=== PATIENT | female | born 1940 | race Caucasian/White ===

== ENCOUNTER 2016-11-22 14:11 | Emergency (ER) | payer MEDICARE, MEDICAID ==
[~2016-11-22] VITALS: Ht 152.4 cm; Wt 100.0 kg
[~2016-11-22 14:11] MED LIST: ASPI-973 PO; CARV6.25 PO; CLOP75TA3 PO; FURO-129 PO; LIP40 PO; LISI-567 PO; NITR0.4T6 SL; SPIR25TA PO; oxygen NASAL
[2016-11-22 14:18] VITALS: BP 142/69; PULSE 67; RESP 16; O2SAT 97
[2016-11-22] MEDS ORDERED: LOSA25TA21 PO (16:30)
[2016-11-22 17:28] LABS: BASOPHILS % (AUTO) 0.4 % (0-3); EOSINOPHILS % (AUTO) 4.3 % (0-5); MONOCYTES % (AUTO) 11.3 % (4-12); Mean Corpuscular Hemoglobin 28.3 pg (27.0-35.0); Mean Corpuscular Volume 89.3 fL (81-100); NEUTROPHILS % (AUTO) 59.3 % (40-74); Platelet Count 238 bil/L (150-400)
--- NOTE | 2016-11-22 17:45 | ED.REPORT ---
HPI-Abd Pain F 40 and Over Date of Service Nov 22, 2016 ED Provider: Deo Lazaro MD Pt is a 76 y/o female w/ a hx of CAD, HTN, hyperlipidemia, presenting to the ED c/o constant lower abdominal pain with radiation to the bilateral inguinal regions onset 2 days ago. She also reports bilateral lower extremity weakness which she states is caused by the pain. She denies diarrhea, constipation, bowel incontinence, dysuria, nausea, vomiting, fever, chills. Pt denies any recent trauma. There is no history of similar symptoms. She has no history of bleeding ulcers. The patient was seen at a walk in clinic and told to come here because "she needed imaging". 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 PCP: [facility] Notes Stated Complaint: WEAKNESS Chief Complaint: Extremity Trauma Nursing Notes Reviewed: Yes Allergies: Coded Allergies: Penicillins (Verified Allergy, Unknown, Rash, 11/22/16) Scheduled ([oxygen]) 2 L NASAL AT NIGHT Aspirin (Aspirin) 81 Mg Tablet 81 MG PO DAILY Atorvastatin (Lipitor) 40 Mg Tablet 40 MG PO HS Carvedilol (Coreg) 6.25 Mg Tablet 6.25 MG PO BID Clopidogrel Bisulfate (Plavix) 75 Mg Tablet 75 MG PO DAILY Furosemide (Lasix) 20 Mg Tablet 20 MG PO DAILY Lisinopril (Lisinopril) 20 Mg Tablet 20 MG PO DAILY Losartan Potassium (Losartan Potassium) 25 Mg Tablet 25 MG PO DAILY Spironolactone (Aldactone) 25 Mg Tablet 12.5 MG PO DAILY Scheduled PRN Nitroglycerin SL (Nitroglycerin SL) 0.4 Mg Tab.subl 0.4 MG SL DIRECTED PRN PRN For Chest Pain General Time Seen by MD: 17:43 Chief Complaint 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 pain 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, 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 Arrived By: Walk-in Sudden in Onset?: No Onset Occurred: 2 days ago Symptom Duration: Since onset Progression since Onset: Unchanged Location: : Abdomen lower Quality: Painful Severity: Current: Moderate Severity: Maximum: Moderate Similar Sx Previous: No Past Medical History Past Medical History Hypertension Hyperlipidemia CAD STEMI Past Surgical History Denies Family History noncontributory Smoking History Never Smoker Social History Alcohol Use: Denies alcohol use Drug Use: Denies drug use Other Social History: Good social support, , Local resident Ambulatory Status Independent Review of Systems Constitutional: Denies: Chills, Fever Respiratory: Denies: Non-productive cough, Shortness of breath Cardiovascular: Denies: Chest pain, Dyspnea on exertion GI: Reports: Abdominal pain, Denies: Constipation, Diarrhea, Nausea, Vomiting Female: Denies: Dysuria, Urinary frequency Complete sys rev & neg: except as marked. Neurologic: Reports: Weakness, Denies: Bladder dysfunction, Bowel dysfunction, Focal weakness, Numbness Physical Exam Vital Signs Vital Signs (First) Date Time Temp Pulse Resp B/P Pulse Ox O2 Delivery O2 Flow Rate FiO2 11/22/16 14:18 36.4 67 16 142/69 97 Room Air Initial VS: Reviewed, Vital signs normal Head / Eyes: Atraumatic, Normocephalic, PERRL ENT: Mucous membranes moist, Conjunctiva normal, No scleral icterus Neck: Supple, Full range of motion Skin: Warm, Dry, No cyanosis Neurologic: Alert, Oriented, Nonfocal Psychiatric: Mood/affect normal, Behavior normal, Normal thought content General/Constitutional: Awake, Alert, No acute distress, Well appearing, Cooperative, Not toxic appearing Respiratory / Chest: Atraumatic, Breath sounds NL, Breath sounds = bilat, No respiratory distress, No rales, No rhonchi, No wheezing, No retractions, No stridor, No chest tenderness, No chest wall deformity, No crepitus Cardiovascular: Heart rate NL, Regular rhythm, Heart sounds NL, No gallop, No murmurs, No rubs, Cap refill not delayed, Peripheral circulation NL Abdomen: Atraumatic, Soft, Non-tender, No guarding, No rebound, No distention, No palpable mass Back: Full range of motion, Painless range of motion Lower Extremity / Pelvis / MS: Atraumatic, Full range of motion, No deformity, Neurologic intact, Vascular intact, No compartment syndrome, Pelvis stable Interpretation & Diagnostics Lab Results Interpretation Result Diagram: 11/22/16 1655 11/22/16 1655 Test 11/22/16 16:55 11/22/16 17:43 White Blood Count 8.2th/mm3 (3.8-10.1) Red Blood Count 4.28mil/mm3 (3.90-5.20) Hemoglobin 12.1g/dL (12.0-15.6) Hematocrit 38.2% (35.0-46.0) Mean Corpuscular Volume 89.3fL (81-100) Mean Corpuscular Hemoglobin 28.3pg (27.0-35.0) Mean Corpuscular Hemoglobin Concent 31.7% (32.0-37.0) Red Cell Distribution Width 15.5% (12.3-15.4) Platelet Count 238bil/L (150-400) Neutrophils (%) (Auto) 59.3% (40-74) Lymphocytes (%) (Auto) 24.5% (14-46) Monocytes (%) (Auto) 11.3% (4-12) Eosinophils (%) (Auto) 4.3% (0-5) Basophils (%) (Auto) 0.4% (0-3) Sodium Level 142mEq/L (134-144) Potassium Level 3.9mEq/L (3.5-5.2) Chloride Level 103mEq/L (97-108) Carbon Dioxide Level 26mmol/L (18-29) Blood Urea Nitrogen 16mg/dL (8-27) Creatinine 0.59mg/dL (0.57-1.00) Estimat Glomerular Filtration Rate 141mL/min (>59) Glucose Level 109mg/dL (60-99) Calcium Level 9.1mg/dL (8.5-10.1) Total Bilirubin 0.2mg/dL (0.0-1.2) Aspartate Amino Transf (AST/SGOT) 12U/L (0-50) Alanine Aminotransferase (ALT/SGPT) 11U/L (0-32) Alkaline Phosphatase 77U/L (25-165) Total Protein 7.0g/dL (6.4-8.4) Albumin 3.8g/dL (3.4-5.0) Hold Dennis Top Tube Received (Received) Urine Color Straw (YELLOW) Urine Appearance Clear (CLEAR,HAZY) Urine pH 5.5 (5.0-8.0) Urine Specific [place] 1.010 (1.003-1.035) Urine Protein Negativemg/dL (NEG,TRACE) Urine Glucose (UA) Negativemg/dL (NEGATIVE) Urine Ketones Negativemg/dL (NEGATIVE) Urine Occult Blood Negative (NEGATIVE) Urine Nitrite Negative (NEGATIVE) Urine Bilirubin Negative (NEGATIVE) Urine Urobilinogen Normalmg/dL (NORMAL) Urine Leukocyte Esterase Trace (NEGATIVE) Urine RBC 0-2/hpf (0-2) Urine WBC 0-5/hpf (0-5) Urine Epithelial Cells Few/hpf (NONE-MOD) Urine Crystals None seen (NONE SEEN) Urine Bacteria None/hpf (NONE-FEW) Urine Hyaline Casts None/lpf (NONE) Urine Granular Casts None seen (NONE SEEN) Urine Waxy Casts None seen (NONE SEEN) Urine Red Blood Cell Casts None seen (NONE SEEN) Urine White Blood Cell Casts None seen (NONE SEEN) Urine Mucus None seen (None Seen) Urine Trichomonas None seen (NONE SEEN) Urine Yeast None (NONE SEEN) Urine Culture Reflexed Indicated X-Ray Interpretation Xray Interpretation: IMPRESSION: No fracture or dislocation. Dictated by: Kirsten Evans M.D. on 11/22/2016 at 18:52 Approved by: Kirsten Eavns M.D. on 11/22/2016 at 18:53 Study Performed: 2 view X-Ray Ordered: Pelvis Interpretation / Wet Read by: Interpret - Radiologist Re-Eval/Medical Decision Re-Evaluation/Progress : Time of Eval: 19:05 Re-Evaluation/Progress Note: Pt rechecked. Discussed negative imaging results. Pt ambulated, pain is improved post ibuprofen. Has a walker at home. Informed pt of plan for treatment. Pt understands and agrees with plan for treatment. F/U instructions and RTER warnings given. All questions addressed. Counseled Regarding: Diagnosis, Lab results, Need for follow-up, When/why to return to ED Discharge & Departure Primary Impression: Bilateral hip pain Disposition: Home Discharge Condition All VS Reviewed: Yes Condition: Stable Additional Instructions: Emergency Department evaluation included a review, examination review past records labs and pelvis x-ray. No acute medical problems identified tonight. Hip and pelvic pain is most likely musculoskeletal. Ibuprofen 400 mg 3 times a day with food will help. Take this for 1 week and then only as needed for pain. Acetaminophen as needed for pain not controlled by ibuprofen. Follow up with primary care next week. Return to emergency department for bowel pain fever vomiting black stool or vomiting blood Referrals: Tres Thacker MD (PCP) Scribe Attestation Portions of this note were transcribed by Chidi Castellanos and Joseph Cook. I, Dr. Lazaro personally performed the history, physical exam and medical decision- making; I reviewed and confirmed the accuracy of the information in the transcribed note. Signed by: Chidi Castellanos and Joseph Cook, Calvin, 11/22/16 and 1905 copies to: Tres Thacker MD, Donald L MD Nov 22, 2016 17:45 JOSEPH COOK Nov 22, 2016 17:55 Chidi Castellanos Nov 22, 2016 19:07
[2016-11-22 18:09] LABS: APPEARANCE,URINE CLEAR (CLEAR,HAZY); COLOR,URINE STRAW (YELLOW); PH,URINE 5.5 (5.0-8.0)
[2016-11-22 18:10] LABS: OCCULT BLOOD,URINE NEGATIVE (NEGATIVE); UROBILINOGEN,URINE NORMAL (NORMAL)
[2016-11-22 18:49] VITALS: BP 167/72; PULSE 60; RESP 18; O2SAT 98
--- NOTE | 2016-11-22 18:55 | DRSVH ---
PROCEDURE: X-RAY PELVIS, ONE OR TWO VIEWS ([id number]) INDICATIONS: inguinal pain and legs weakness bilaterally. TECHNIQUE: 1 view(s) of the pelvis acquired. COMPARISON: None. FINDINGS: Bones: No fractures or dislocations. No suspicious bony lesions. There is mild to moderate degener ative disease is in the lower lumbar spine. Soft tissues: Visualized bowel gas pattern is normal. No suspicious soft tissue calcifications. IMPRESSION: No fracture or dislocation. Dictated by: Kirsten Evans M.D. on 11/22/2016 at 18:52 Approved by: Kirsten Evans M.D. on 11/22/2016 at 18:53
[2016-11-22 19:26] VITALS: BP 167/72; PULSE 60; RESP 18; O2SAT 98
== END 2016-11-22 19:27 | disposition home or self-care (01) ==
LOC: SED 14:11
DX: M25.551 Pain in right hip (principal); R10.30 Lower abdominal pain, unspecified; I10 Essential (primary) hypertension; E78.5 Hyperlipidemia, unspecified; I25.10 Atherosclerotic heart disease of native coronary artery without angina pectoris; B96.20 Unspecified Escherichia coli [E. coli] as the cause of diseases classified elsewhere; Z79.82 Long term (current) use of aspirin; Z88.0 Allergy status to penicillin